=== PATIENT | male | born 1995 ===

== ENCOUNTER 2022-01-31 18:39 | Emergency (ER) | payer BC ==
[~2022-01-31] VITALS: Ht 167.6 cm; Wt 70.8 kg
[2022-01-31] MEDS ORDERED: LIDOCAINE 5% PATCH TD ONE ×2 (21:00→21:06)
--- NOTE | 2022-01-31 21:02 | NUR ---
Pt. walked to the ER c/o right chest pain and soreness that started 2 weeks ago from lifting boxing, pt rating 1/10 pain. Denies SOB and n/v.
--- NOTE | 2022-01-31 22:10 | NUR ---
Patient discharged to home in stable condition. Written and verbal after care instructions given. Patient verbalizes understanding of instructions. Stressed follow up or return to ER for worsening s/s.
[2022-01-31 22:11] VITALS: BP 126/40
== END 2022-01-31 22:12 | disposition home or self-care (01) ==
LOC: ER 18:43
DX: S29.011A Strain of muscle and tendon of front wall of thorax, initial encounter (principal); X50.0XXA Overexertion from strenuous movement or load, initial encounter; Y92.89 Other specified places as the place of occurrence of the external cause; Y99.0 Civilian activity done for income or pay
CPT/HCPCS: 71045; A4663